=== PATIENT | female | born 1990 | race Caucasian/White ===

== ENCOUNTER 2016-04-18 19:39 | Emergency (ER) | payer MEDICAID ==
[2016-04-18] MEDS ORDERED: OPTIRAY 350 100 ML VIAL HMH IV ONE (19:40)
[2016-04-18] MEDS ORDERED: DICYCLOMINE 20MG/2ML VIAL IM ONE ×2 (20:29→20:38)
[2016-04-18] MEDS ORDERED: ONDANSETRON 4 MG VIAL ONE (20:30)
[2016-04-18] MEDS ORDERED: FAMOTIDINE 20 MG INJ ONE (20:30)
== END 2016-04-18 23:12 | disposition home or self-care (01) ==
LOC: ER 19:39
CPT/HCPCS: 36415; 74177; 80053; 81001; 83690; 84703; 85025; 86677; 96372; 96374; 96375

== ENCOUNTER 2016-05-08 19:13 | Emergency (ER) | payer MEDICAID | END 2016-05-08 23:56 | disposition home or self-care (01) | LOC: ER 19:13 | DX: R04.2 Hemoptysis (principal); J41.1 Mucopurulent chronic bronchitis; Z87.891 Personal history of nicotine dependence; J06.9 Acute upper respiratory infection, unspecified | CPT/HCPCS: 71020 ==